=== PATIENT | female | born 1995 | race Caucasian/White ===

== ENCOUNTER 2017-04-06 16:48 | Emergency (ER) | payer OTHER ==
--- NOTE | 2017-04-06 19:43 | DIAGNOSTIC IMAGING REPORT ---
PROCEDURE: ABDOMEN/PELVIS WITH CONTRAST CLINICAL INDICATION: ABDOMINAL PAIN TECHNIQUE: 125 ml of Isovue 300 were injected intravenously and axial images were obtained of the abdomen and pelvis with sagittal and coronal reformations. COMPARISON: None. FINDINGS: ABDOMEN: Mild right hydronephrosis and a very slight relative delay of contrast excretion. Mild to moderate right hydroureter to the level of the distal ureter. A 4 mm calculus is present in the distal ureter between one and 2 cm above the ureterovesicular junction. A small amount of contrast is present in the urinary bladder and opacifying the left ureter nearly to the level of the ureterovesicular junction. The enhancement pattern throughout the right kidney is otherwise normal without evidence of pyelonephritis or suspicious mass. Clear lung bases. Normal sized heart. No hiatal hernia. The liver, gallbladder, adrenal glands, left kidney, pancreas and spleen are normal. The abdominal aorta is normal in its course and caliber. No atherosclerosis. There are no suspicious calcifications, retroperitoneal adenopathy or masses. The stomach, upper bowel loops, and mesentery are normal. Intact anterior abdominal wall. PELVIS: The appendix and pelvic small bowel loops are normal. Normal amount of stool in the colon and rectum. The uterus, ovaries, urinary bladder, and pelvic vessels are normal. No adenopathy or pelvic mass. Trace pelvic free fluid. Intact osseous structures. IMPRESSION: 1. 4 mm right distal ureteral calculus causing mild hydroureteronephrosis and slight delay of right renal function. 2. No evidence of pyelonephritis. 3. Discussed with Dr. [place] in the emergency room. All CT scans at this facility use dose modulation, iterative reconstruction, and/or weight-based dosing when appropriate to reduce radiation dose to as low as reasonably achievable.
--- NOTE | 2017-04-06 20:39 | ED NURSING NOTES ---
Clinical Report - Nurses [facility] [address] [place] [address] 04/06/2017 16:50 [id number] TRI[facility] Triage time 16:58. Acuity: LEVEL 3. Chief Complaint: RIGHT-SIDED FLANK PAIN. Alert. No acute distress. --17:13 Alisson Mcclelland R.N. 16:57 04/06/17. BP: 127/71. HR: 82. RR: 18. O2 saturation: 99% on room air. Temp: 97.3 F. Pain level now: 0/10. Additional comments: 05/17 . --17:13 Alisson Mcclelland R.N. Weight: 90.7 kg stated. Height/Length: 69 inches Per Patient. BMI: 29.5. --17:10 Alisson Mcclelland R.N. Medication/allergy information source: the patient. --17:13 Alisson Mcclelland R.N. History Arrived by private vehicle. Historian: patient and family. Accompanied by family. No primary care physician. This started today. She has had moderate, intermittent, dull right-sided flank pain with nausea. Last oral intake by patient was lunch. 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 (aleve and). PAST MEDICAL HX: Last normal menstrual period- March 22. SOCIAL HX: Never smoker. History of drug use: marijuana. Recently used drugs just prior to arrival. No alcohol use. FALL RISK ASSESSMENT: Fall risk assessment completed. No fall risk identified. NUTRITIONAL RISK ASSESSMENT: The nutritional risk assessment revealed no deficiencies. FUNCTIONAL ASSESSMENT: Functional assessment: no impairments noted. LEARNING NEEDS ASSESSMENT: The learning needs assessment revealed no barriers. SKIN INTEGRITY ASSESSMENT: Skin integrity risk assessment completed. No skin integrity risk identified. --17:13 Alisson Mcclelland R.N. PROBLEMS: MRSA Infection. Bronchitis. Pneumonia. --17:10 Alisson Mcclelland R.N. ADDITIONAL SURGERIES: no known surgeries. Interventions ID band on patient. To room. --17:13 Alisson Mcclelland R.N. PHYSICAL ASSESSMENT Ambulatory to room. Patient gowned. GENERAL / NEURO / PSYCH: Alert. Oriented X 4. Appears anxious. HEENT: Mucous membranes are pink. RESPIRATORY: Respirations not labored. GI / : Abdominal tenderness in the right lower quadrant and lower abdomen. SKIN: Skin is warm and dry. --17:13 Alisson Mcclelland R.N. NURSING PROGRESS NOTES Patient gowned. Head of bed elevated. Two patient identifiers checked. Call light placed in reach. Side rails up x 1. Bed placed in lowest position. Brakes of bed on. Patient ready for evaluation. --17:13 Alisson Mcclelland R.N. 18:31 04/06/2017 Site #1 started via IV in the right antecubital space with an 20g angiocath, with aseptic technique and good blood return; one attempt. Blood drawn: rainbow set. Labeled in the presence of the patient and sent to the lab. Saline lock flushed with saline. --18:31 Alisson Mcclelland R.N. 18:32 04/06/2017 Started bag #1 1000 mL IV Fluids IV NS (Saline); at 250 mL/hr over 4 hour(s) via site #1 via IV pump. Allergies verified and confirmed 5 rights. IV patency established. IV site checked: no pain, redness, or swelling. IV flushed thoroughly pre- and post-medication administration. --18:32 Alisson Mcclelland R.N. 19:31 04/06/2017 Toradol IVP 30 mg given over 1 minute(s) via site #1. Allergies verified and confirmed 5 rights. IV patency established. IV site checked: no pain, redness, or swelling. IV flushed thoroughly pre- and post-medication administration. IVP given by RN. --19:46 Alisson Mcclelland R.N. 19:33 04/06/2017 Started 2 gm of Rocephin (CefTRIAXone Sodium) IVPB in bag #1 50 mL; at 100 mL/hr via site #1 via IV pump. Allergies verified and confirmed 5 rights. IV patency established. IV site checked: no pain, redness, or swelling. IV flushed thoroughly pre- and post-medication administration. --19:48 Alisson Mcclelland R.N. 19:34 04/06/2017 Zofran (Ondansetron HCl) IVP 4 mg given over 1 minute(s) via site #1. Allergies verified and confirmed 5 rights. IV patency established. IV site checked: no pain, redness, or swelling. IV flushed thoroughly pre- and post-medication administration. IVP given by RN. --19:49 Alisson Mcclelland R.N. 19:40 04/06/17. BP: 128/77. HR: 85. RR: 20. O2 saturation: 97% on room air. Pain level now: 05/17. 18:19 04/06/17. BP: 122/88. HR: 78. RR: 20. O2 saturation: 99% on room air. --19:51 Alisson Mcclelland R.N. 21:01 04/06/2017 Site #1 removed. Bandaid applied. --21:11 Sheriff Fuller R.N. DISPOSITION / DISCHARGE No learning barriers present. Discharge instructions provided and reviewed with the patient. Reviewed medication(s) side effects, precautions, dosing and course information. Prescription(s) given to the patient. Patient verbalized understanding. Written instructions provided in Turkmen. The patient was discharged by the physician. She was discharged home and accompanied by parent. She left the Emergency Department ambulatory and via private vehicle. Parent driving. --21:11 Sheriff Fuller R.N. 21:10 04/06/17. BP: 124/64. HR: 73. RR: 14. O2 saturation: 99%. Temp: 98.5 F. --21:11 Sheriff Fuller R.N. Locked/Released at 04/06/2017 21:12 by Sheriff Fuller R.N.
--- NOTE | 2017-04-06 20:39 | ED CLINICAL REPORT ---
Clinical Report - Physicians/Mid Levels [facility] [address] [place] [address] 04/06/2017 16:50 [id number] Time Seen: 16:56 Apr 06 2017. Arrived- By private vehicle. Historian- patient. CPT: ER phys charges level 4 (#[id number]). HISTORY OF PRESENT ILLNESS Chief Complaint: FLANK PAIN. At its maximum, severity described as 8 / 10. When seen in the E.D., it was almost gone. Modifying factors- worsened by movement. Not relieved by anything. It is described as "pain" and well localized and it is described as located in the right lower quadrant. This started today. It was abrupt in onset and has been intermittent (3 episodes lasting 2 hours). The patient has had nausea and loss of appetite. No vomiting or diarrhea. No recent travel. Similar symptoms previously: None. Recent medical care: Not recently seen/assessed. REVIEW OF SYSTEMS No constipation, black stools, hematemesis, difficulty with urination or pain with urination. No urinary frequency, fever, sore throat, chest pain or difficulty breathing. No cough, joint pain, skin rash, chills or back pain. All systems otherwise negative, except as recorded above. PAST HISTORY No history of peptic ulcer. No history of gallstones or bowel obstruction. Has not had urinary calculi. Surgeries: No prior abdominal surgery. SOCIAL HISTORY History of drug use: marijuana. No alcohol use. ADDITIONAL NOTES The nursing notes have been reviewed. PHYSICAL EXAM Vital Signs: 04/06/2017 16:57 BP: 127/71. HR: 82. RR: 18. O2 saturation: 99%. Temp: 97.3 F. Pain level now: 0/10. Appearance: Alert. No acute distress. Eyes: Eyes normal inspection. ENT: Pharynx normal. Neck: Normal inspection. CVS: Normal heart rate and rhythm. Heart sounds normal. Pulses normal. Respiratory: No respiratory distress. Breath sounds normal. Chest nontender. Abdomen: Soft. Tenderness in the right lower quadrant. Bowel sounds normal. Back: Normal inspection. No CVA tenderness. Skin: Skin warm. Normal skin color. No rash. Extremities: Extremities exhibit normal ROM. No lower extremity edema. Neuro: Oriented X 3. No motor deficit. No sensory deficit. LABS, X-RAYS, AND EKG Abdominal CT: Normal aorta. Normal liver, spleen, pancreas, gallbladder and adrenals. A single urinary calculus is present in the right distal ureter (4 mm). There is moderate obstruction. Moderate hydronephrosis of the right kidney. Uterus normal. Adnexa normal. Bladder normal. Appendix normal. No free fluid. No diverticulitis. No pyelonephritis. Abdominal CT performed with IV contrast. The study was independently viewed by me, interpreted by the radiologist and discussed with the radiologist. Laboratory Tests: UA-Culture if indicated: (PADMINI: 04/06/2017 16:55) ( [facility] 04/06/2017 17:48) Final results Test Result Flag Units (Reference) URINE COLOR YELLOW URINE APPEARANCE CLEAR URINE GLUCOSE NEGATIVE (NEGATIVE) URINE BILIRUBIN NEGATIVE (NEGATIVE) URINE KETONE TRACE (NEGATIVE) URINE SPECIFIC GRAVITY 1.020 (1.010-1.030) URINE PH 6.5 (5.0-8.0) URINE PROTEIN 1+ (NEGATIVE) URINE UROBILINOGEN 0.2 EU/dL (0.2-1.0) URINE NITRITE NEGATIVE (NEGATIVE) URINE BLOOD 3+ (NEGATIVE) URINE LEUK ESTERASE POSITIVE (NEGATIVE) URINE RBC 10-25 rbc/hpf (0-1) URINE WBC 5-10 wbc/hpf (0-1) URINE EPITHELIAL CELLS 1-3 EPI/hpf (0-5) URINE BACTERIA MODERATE (2+ TO 3+) (NONE SEEN) URINE COMMENT CULTURE INDICATED URINE CULTURES ARE SET-UP BASED ON THE FOLLOWING CRITERIA:POSITIVE NITRITEPOSITIVE LEUKOCYTE ESTERASEGREATER THAN 10 WHITE BLOOD CELLSMODERATE (2+) OR GREATER BACTERIA Urine: (PADMINI: 04/06/2017 16:53) ( [facility] 04/06/2017 17:56) Final results Test Result Flag Units (Reference) URINE NEGATIVE CBC w Diff: (PADMINI: 04/06/2017 18:30) ( [facility] 04/06/2017 18:46) Final results Test Result Flag Units (Reference) WHITE BLOOD COUNT 13.3 H K/uL (4.5-11.5) RED BLOOD COUNT 4.65 M/uL (4.00-5.20) HEMOGLOBIN 13.0 gm/dL (12.0-16.0) HEMATOCRIT 39.2 % (36.0-46.0) MEAN CELL VOLUME 84 fL (80-100) MEAN CORPUSCULAR HGB 28 pg (26-34) MEAN CORPUSCULAR HGB CONC 33 g/dL (31-37) RED CELL DISTRIBUTION WIDTH 14.9 H % (11.6-14.8) PLATELET COUNT 267 K/uL (150-400) NEUTROPHIL % 82.0 H % (50-75) LYMPH % 12.5 L % (25-40) MONO % 4.7 % (3-14) EOSINOPHIL % 0.3 % (0-4) BASOPHIL % 0.5 % (0-2) CMP: (PADMINI: 04/06/2017 18:30) ( MsgRcvd 04/06/2017 19:02) Final results Test Result Flag Units (Reference) GLUCOSE 92 mg/dL (70-110) BUN 13 mg/dL (7-18) CREATININE 1.1 mg/dL (0.6-1.3) Estimated GFR >60 mL/min Estimated GFR- >60 mL/min Note: Persistent reduction over 3 months in eGFR<60 mL/min/1.73 m2 defines CKD. Patients with eGFR values>=60 mL/min/1.73 m2 may also have CKD if evidence ofpersistent proteinuria. Additional information may be foundat www.kidney.org. SODIUM 141 mmol/L (136-145) POTASSIUM 3.8 mmol/L (3.5-5.1) CHLORIDE 102 mmol/L (98-107) CARBON DIOXIDE 27 mmol/L (21-32) CALCIUM 9.0 mg/dL (8.5-10.1) TOTAL PROTEIN 8.9 H g/dL (6.4-8.2) ALBUMIN 4.8 g/dL (3.3-5.0) BILIRUBIN, TOTAL 0.6 mg/dL (0.0-1.0) ALKALINE PHOSPHATASE 49 U/L (46-116) AST (SGOT) 15 U/L (15-37) ALT (SGPT) 22 U/L (12-78) LIPASE 139 U/L (73-393) AMYLASE 35 U/L (25-115) . PROGRESS AND PROCEDURES Course of Care: patient has had 3 episodes today of severe right lower quadrant abdominal pain. This could be a stuttering appendix aren't ovarian cyst. Kidney stone is also possible as well as pyelonephritis. IV NS Rocephin 2g IV Toradol 30 mg IV Patient is stable. Symptoms better. Patient/family counseled. Disposition: Discharged. Condition: stable and improved. CLINICAL IMPRESSION Ureterolithiasis (single stone) in the right ureter with renal colic, hydronephrosis and urinary tract infection. No acute pyelonephritis. Acute urinary tract infection with cystitis. INSTRUCTIONS Do not work for two days until better. Drink plenty of fluids. No sexual contact until released. (Strain urine: Return stone to your Doctor.). Warnings: Further evaluation is necessary. GENERAL WARNINGS: Return or contact your physician immediately if your condition worsens or changes unexpectedly, if not improving as expected, or if other problems arise. Prescription Medications: Zofran (orally disintegrating tablets) 4 mg: take 1 orally every 4 hours as needed for nausea. Dispense ten (10). No refill. Macrobid 100 mg: Take 1 capsule orally every 12 hours for 7 days. No refills. Substitution is permissible. Oxycodone/APAP 5 mg/325 mg: take 1-2 tablets orally every 6 hours as needed for pain. Dispense fifteen (15). No refill. OTC Medications: Take ibuprofen (Advil, Nuprin, etc.) according to label instructions. Available over the counter. Follow-up: Return to the emergency department in two days if not better. Follow up with your doctor in one week. Call for an appointment. Understanding of the discharge instructions verbalized by patient. (Electronically signed by Ryder Tracy MD 04/07/2017 16:34)
--- NOTE | 2017-04-06 20:39 | ED ORDER SUMMARY ---
..... Patient: ALYCIA NICK OrderSheet [facility] VisitID: [id number] [address] [place], [place] [id number] 21y, F Registration Date/Time: 04/06/2017 ORDER SHEET Weight: 90.7 kg (stated) Allergies: GENERAL ORDERS: UA-Culture if indicated Urgent (17:15 04/06/2017 Terri MURRAY) (Ack 17:21 PWeiler ER Tech1) (17:24 PWeiler ER Tech1) Urine Urgent (17:49 04/06/2017 Terri MURRAY) (17:51 PWeiler ER Tech1) CT Abd/Pel w Cont (No) (N/A) Urgent (18:01 04/06/2017 Terri MURRAY) (Ack 18:06 PEEeitanya ER Tech1) (19:22 SRoberts R.N.) CBC w Diff Urgent (18:01 04/06/2017 Terri MURRAY) (Ack 18:06 PEEeiler ER Tech1) (18:31 SRoberts R.N.) CMP Urgent (18:01 04/06/2017 Terri MURRAY) (Ack 18:06 PEEeitanya ER Tech1) (18:31 SRoberts R.N.) Amylase Urgent (18:01 04/06/2017 Terri MURRAY) (Ack 18:06 PEEeitanya ER Tech1) (18:31 SRoberts R.N.) Lipase Urgent (18:01 04/06/2017 Terri MURRAY) (Ack 18:06 PEEeiler ER Tech1) (18:31 SRoberts R.N.) MEDICATION ORDERS: IV FLUIDS: IV NS : initial bolus none -, then 250 mL/hr for 4h (NOW); Routine (18:01 04/06/2017 Terri MURRAY) (18:32 SRoberts R.N.) Rocephin IV 2 gm/50mL (NOW) (19:30 04/06/2017 Terri MURRAY) (Ack 19:31 SRoberts R.N.) (19:48 SRoberts R.N.) Toradol IV 30 mg (NOW) (19:30 04/06/2017 Terri MURRAY) (Ack 19:31 Natanael R.NFan) (19:46 Natanael Madden.Elver) Zofran IV 4 mg (NOW) (19:48 04/06/2017 Natanael Winchester. verbal order read back to Terri MURRAY) (19:49 Natanael DavidsonNFan) ORDER SHEET NOTES: [Electronically signed by Sheriff Roberth Fuller (21:12 04/06/2017)] [Electronically signed by Ryder Tracy MD (16:34 04/07/2017)] [Electronically locked/signed by Sheriff Roberth Fuller (21:12 04/06/2017)]
--- NOTE | 2017-04-06 20:39 | ED ORDER SUMMARY ---
..... Patient: ALYCIA NICK OrderSheet [facility] VisitID: [id number] [address] [place], [place] [id number] 21y, F Registration Date/Time: 04/06/2017 ORDER SHEET Weight: 90.7 kg (stated) Allergies: GENERAL ORDERS: UA-Culture if indicated Urgent (17:15 04/06/2017 Terri MURRAY) (Ack 17:21 PWeiler ER Tech1) (17:24 PWeiler ER Tech1) Urine Urgent (17:49 04/06/2017 Terri MURRAY) (17:51 PWeiler ER Tech1) CT Abd/Pel w Cont (No) (N/A) Urgent (18:01 04/06/2017 Terri MURRAY) (Ack 18:06 PEEeitanya ER Tech1) (19:22 SRoberts R.N.) CBC w Diff Urgent (18:01 04/06/2017 Terri MURRAY) (Ack 18:06 PEEeiler ER Tech1) (18:31 SRoberts R.N.) CMP Urgent (18:01 04/06/2017 Terri MURRAY) (Ack 18:06 PEEeitanya ER Tech1) (18:31 SRoberts R.N.) Amylase Urgent (18:01 04/06/2017 Terri MURRAY) (Ack 18:06 PEEeitanya ER Tech1) (18:31 SRoberts R.N.) Lipase Urgent (18:01 04/06/2017 Terri MURRAY) (Ack 18:06 PEEeiler ER Tech1) (18:31 SRoberts R.N.) MEDICATION ORDERS: IV FLUIDS: IV NS : initial bolus none -, then 250 mL/hr for 4h (NOW); Routine (18:01 04/06/2017 Terri MURRAY) (18:32 SRoberts R.N.) Rocephin IV 2 gm/50mL (NOW) (19:30 04/06/2017 Terri MURRAY) (Ack 19:31 SRoberts R.N.) (19:48 SRoberts R.N.) Toradol IV 30 mg (NOW) (19:30 04/06/2017 Terri MURRAY) (Ack 19:31 Natanael R.NFan) (19:46 Natanael Madden.Elver) Zofran IV 4 mg (NOW) (19:48 04/06/2017 Natanael Winchester. verbal order read back to Terri MURRAY) (19:49 Natanael DavidsonNFan) ORDER SHEET NOTES: [Electronically signed by Sheriff Roberth Fuller (21:12 04/06/2017)] [Electronically signed by Ryder [place] MD (16:34 04/07/2017)] [Electronically locked/signed by Sheriff Roberth Fuller (21:12 04/06/2017)]
--- NOTE | 2017-04-06 20:39 | ED NURSING NOTES ---
Clinical Report - Nurses [facility] [address] [place] [address] 04/06/2017 16:50 [id number] TRI[facility] Triage time 16:58. Acuity: LEVEL 3. Chief Complaint: RIGHT-SIDED FLANK PAIN. Alert. No acute distress. --17:13 Alisson Mcclelland R.N. 16:57 04/06/17. BP: 127/71. HR: 82. RR: 18. O2 saturation: 99% on room air. Temp: 97.3 F. Pain level now: 0/10. Additional comments: 05/17 . --17:13 Alisson Mcclelland R.N. Weight: 90.7 kg stated. Height/Length: 69 inches Per Patient. BMI: 29.5. --17:10 Alisson Mcclelland R.N. Medication/allergy information source: the patient. --17:13 Alisson Mcclelland R.N. History Arrived by private vehicle. Historian: patient and family. Accompanied by family. No primary care physician. This started today. She has had moderate, intermittent, dull right-sided flank pain with nausea. Last oral intake by patient was lunch. 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 (aleve and). PAST MEDICAL HX: Last normal menstrual period- March 22. SOCIAL HX: Never smoker. History of drug use: marijuana. Recently used drugs just prior to arrival. No alcohol use. FALL RISK ASSESSMENT: Fall risk assessment completed. No fall risk identified. NUTRITIONAL RISK ASSESSMENT: The nutritional risk assessment revealed no deficiencies. FUNCTIONAL ASSESSMENT: Functional assessment: no impairments noted. LEARNING NEEDS ASSESSMENT: The learning needs assessment revealed no barriers. SKIN INTEGRITY ASSESSMENT: Skin integrity risk assessment completed. No skin integrity risk identified. --17:13 Alisson Mcclelland R.N. PROBLEMS: MRSA Infection. Bronchitis. Pneumonia. --17:10 Alisson Mcclelland R.N. ADDITIONAL SURGERIES: no known surgeries. Interventions ID band on patient. To room. --17:13 Alisson Mcclelland R.N. PHYSICAL ASSESSMENT Ambulatory to room. Patient gowned. GENERAL / NEURO / PSYCH: Alert. Oriented X 4. Appears anxious. HEENT: Mucous membranes are pink. RESPIRATORY: Respirations not labored. GI / : Abdominal tenderness in the right lower quadrant and lower abdomen. SKIN: Skin is warm and dry. --17:13 Alisson Mcclelland R.N. NURSING PROGRESS NOTES Patient gowned. Head of bed elevated. Two patient identifiers checked. Call light placed in reach. Side rails up x 1. Bed placed in lowest position. Brakes of bed on. Patient ready for evaluation. --17:13 Alisson Mcclelland R.N. 18:31 04/06/2017 Site #1 started via IV in the right antecubital space with an 20g angiocath, with aseptic technique and good blood return; one attempt. Blood drawn: rainbow set. Labeled in the presence of the patient and sent to the lab. Saline lock flushed with saline. --18:31 Alisson Mcclelland R.N. 18:32 04/06/2017 Started bag #1 1000 mL IV Fluids IV NS (Saline); at 250 mL/hr over 4 hour(s) via site #1 via IV pump. Allergies verified and confirmed 5 rights. IV patency established. IV site checked: no pain, redness, or swelling. IV flushed thoroughly pre- and post-medication administration. --18:32 Alisson Mcclelland R.N. 19:31 04/06/2017 Toradol IVP 30 mg given over 1 minute(s) via site #1. Allergies verified and confirmed 5 rights. IV patency established. IV site checked: no pain, redness, or swelling. IV flushed thoroughly pre- and post-medication administration. IVP given by RN. --19:46 Alisson Mcclelland R.N. 19:33 04/06/2017 Started 2 gm of Rocephin (CefTRIAXone Sodium) IVPB in bag #1 50 mL; at 100 mL/hr via site #1 via IV pump. Allergies verified and confirmed 5 rights. IV patency established. IV site checked: no pain, redness, or swelling. IV flushed thoroughly pre- and post-medication administration. --19:48 Alisson Mcclelland R.N. 19:34 04/06/2017 Zofran (Ondansetron HCl) IVP 4 mg given over 1 minute(s) via site #1. Allergies verified and confirmed 5 rights. IV patency established. IV site checked: no pain, redness, or swelling. IV flushed thoroughly pre- and post-medication administration. IVP given by RN. --19:49 Alisson Mcclelland R.N. 19:40 04/06/17. BP: 128/77. HR: 85. RR: 20. O2 saturation: 97% on room air. Pain level now: 05/17. 18:19 04/06/17. BP: 122/88. HR: 78. RR: 20. O2 saturation: 99% on room air. --19:51 Alisson Mcclelland R.N. 21:01 04/06/2017 Site #1 removed. Bandaid applied. --21:11 Sheriff Fuller R.N. DISPOSITION / DISCHARGE No learning barriers present. Discharge instructions provided and reviewed with the patient. Reviewed medication(s) side effects, precautions, dosing and course information. Prescription(s) given to the patient. Patient verbalized understanding. Written instructions provided in [place]. The patient was discharged by the physician. She was discharged home and accompanied by parent. She left the Emergency Department ambulatory and via private vehicle. Parent driving. --21:11 Sheriff Fuller R.N. 21:10 04/06/17. BP: 124/64. HR: 73. RR: 14. O2 saturation: 99%. Temp: 98.5 F. --21:11 Sheriff Fuller R.N. Locked/Released at 04/06/2017 21:12 by Sheriff Fuller R.N.
--- NOTE | 2017-04-07 16:35 | ED MAR SUMMARY ---
..... Medication Administration Record [facility] [address] [place] [address] Patient: ALYCIA NICK Visit ID: [id number] 21y, F Weight: 90.7 kg Height/Length: 69 in BMI: 29.5 ALLERGIES: Start 18:32 04/06/2017 Alisson Mcclelland R.N. Medication Administered: IV NS (SALINE), Dose: IV Fluids over 4 hour(s), Rate: 250 mL/hr, Dispensed: 1000 mL bag, Site: #1 right AC. Medication Ordered: IV NS : initial bolus none -, then 250 mL/hr for 4h (NOW); Routine. Given 19:31 04/06/2017 Alisson Mcclelland R.N. Medication Administered: TORADOL [IVP], Dose: 30 mg IVP over 1 minute(s), Site: #1 right AC. Medication Ordered: Toradol IV 30 mg (NOW). Start 19:33 04/06/2017 Alisson Mcclelland R.N. Medication Administered: ROCEPHIN [IVPB] (CEFTRIAXONE SODIUM), Dose: 2 gm IVPB, Rate: 100 mL/hr, Dispensed: 50 mL bag, Site: #1 right AC. Medication Ordered: Rocephin IV 2 gm/50mL (NOW). Given 19:34 04/06/2017 Alisson Mcclelland R.N. Medication Administered: ZOFRAN [IVP] (ONDANSETRON HCL), Dose: 4 mg IVP over 1 minute(s), Site: #1 right AC. Medication Ordered: Zofran IV 4 mg (NOW).
--- NOTE | 2017-04-07 16:35 | ED MAR SUMMARY ---
..... Medication Administration Record [facility] [address] [place] [address] Patient: ALYCIA NICK Visit ID: [id number] 21y, F Weight: 90.7 kg Height/Length: 69 in BMI: 29.5 ALLERGIES: Start 18:32 04/06/2017 Alisson Mcclelland R.N. Medication Administered: IV NS (SALINE), Dose: IV Fluids over 4 hour(s), Rate: 250 mL/hr, Dispensed: 1000 mL bag, Site: #1 right AC. Medication Ordered: IV NS : initial bolus none -, then 250 mL/hr for 4h (NOW); Routine. Given 19:31 04/06/2017 Alisson Mcclelland R.N. Medication Administered: TORADOL [IVP], Dose: 30 mg IVP over 1 minute(s), Site: #1 right AC. Medication Ordered: Toradol IV 30 mg (NOW). Start 19:33 04/06/2017 Alisson Mcclelland R.N. Medication Administered: ROCEPHIN [IVPB] (CEFTRIAXONE SODIUM), Dose: 2 gm IVPB, Rate: 100 mL/hr, Dispensed: 50 mL bag, Site: #1 right AC. Medication Ordered: Rocephin IV 2 gm/50mL (NOW). Given 19:34 04/06/2017 Alisson Mcclelland R.N. Medication Administered: ZOFRAN [IVP] (ONDANSETRON HCL), Dose: 4 mg IVP over 1 minute(s), Site: #1 right AC. Medication Ordered: Zofran IV 4 mg (NOW).
--- NOTE | 2017-04-07 16:35 | ED MED RECONCILIATION SUMMARY ---
Patient: ALYCIA NICK Medication Reconciliation Report Merged With [facility] VisitID: [id number] [place] [address] 21y, F Registration Date/Time: 04/06/2017 Weight: 90.7 kg Height/Length: 69 in. BMI: 29.5 ALLERGIES: The patient's Home Medications are listed below: Not obtained. The source(s) of the original Home Medication information: patient The following Medications were given to the patient in the Emergency Department: IV NS IV Fluids bolus 0, then 250 mL/hr, administered: 04/06/2017 6:32:00 PM Toradol [IVP] IVP 30 mg, administered: 04/06/2017 7:31:00 PM Rocephin [IVPB] IVPB bolus 0, then 2 gm 100 mL/hr, administered: 04/06/2017 7:33:00 PM Zofran [IVP] IVP 4 mg, administered: 04/06/2017 7:34:00 PM The following Medications were prescribed to the patient: Take ibuprofen (Advil, Nuprin, etc.) according to label instructions. Available over the counter. -- Ryder Tracy MD Zofran (orally disintegrating tablets) 4 mg: take 1 orally every 4 hours as needed for nausea. Dispense ten (10). No refill. -- Ryder Tracy MD Macrobid 100 mg: Take 1 capsule orally every 12 hours for 7 days. No refills. Substitution is permissible. -- Ryder Tracy MD Oxycodone/APAP 5 mg/325 mg: take 1-2 tablets orally every 6 hours as needed for pain. Dispense fifteen (15). No refill. -- Ryder Tracy MD
--- NOTE | 2017-04-07 16:35 | ED DISCHARGE INSTRUCTIONS ---
Patient: ALYICA NICK General Instructions [facility] VisitID: [id number] [place] [address] 21y, F Registration Date/Time: 04/06/2017 Ureterolithiasis (single stone) in the right ureter with renal colic, hydronephrosis and urinary tract infection. No acute pyelonephritis. Acute urinary tract infection with cystitis. INSTRUCTIONS Do not work for two days until better. Drink plenty of fluids. No sexual contact until released. (Strain urine: Return stone to your Doctor.). Warnings: Further evaluation is necessary. GENERAL WARNINGS: Return or contact your physician immediately if your condition worsens or changes unexpectedly, if not improving as expected, or if other problems arise. Prescription Medications: Zofran (orally disintegrating tablets) 4 mg: take 1 orally every 4 hours as needed for nausea. Dispense ten (10). No refill. Macrobid 100 mg: Take 1 capsule orally every 12 hours for 7 days. No refills. Substitution is permissible. Oxycodone/APAP 5 mg/325 mg: take 1-2 tablets orally every 6 hours as needed for pain. Dispense fifteen (15). No refill. OTC Medications: Take ibuprofen (Advil, Nuprin, etc.) according to label instructions. Available over the counter. Follow-up: Return to the emergency department in two days if not better. Follow up with your doctor in one week. Call for an appointment. Understanding of the discharge instructions verbalized by patient. ADDITIONAL INFORMATION Kidney Stone (W/ Colic) The sharp cramping pain and nausea/vomiting that you have is due to a small stone which has formed in the kidney and is now passing down a narrow tube (ureter) on its way to your bladder. Once it reaches your bladder, the pain will stop. The stone may pass in your urine stream in one piece. [The size may be 1/16" to 1/4" (1-6mm)]. Or, the stone may also break up into rosa fragments which you may not even notice. Once you have had a kidney stone, you are at risk for developing another one in the future. Home Care: Drink plenty of fluids (at least 8 to 10 glasses of water a day). Most stones will pass on their own, but may take from a few hours to a few days. Sometimes the stone is too large to pass by itself and special methods will have to be used to remove the stone. Each time you urinate, do so in a jar. Pour the urine from the jar through the strainer and into the toilet. Continue doing this until 24 hours after your pain stops. By then, if there was a kidney stone, it should pass from your bladder. Some stones dissolve into sand-like particles and pass right through the strainer. In that case, you wont ever see a stone. Save any stone that you find in the strainer and bring it to your doctor for analysis. It may be possible to prevent certain types of stones from forming. Therefore, it is important to know what kind of stone you have. Try to stay as active as possible since this will help the stone pass. Do not stay in bed unless your pain prevents you from getting up. You may notice a red, pink or brown color to your urine. This is normal while passing a kidney stone. Follow Up with your doctor or return to this facility if the pain lasts more than 48 hours. Get Prompt Medical Attention if any of the following occur: Pain that is not controlled by the medicine given Repeated vomiting or unable to keep down fluids Weakness, dizziness or fainting Fever of 100.4F (38C) or higher, or as directed by your healthcare provider Passage of solid red or brown urine (can't see through it) or urine with lots of blood clots Unable to pass urine for 8 hours and increasing bladder pressure Bladder Infection,Female (Adult) A bladder infection ("cystitis" or "UTI") usually causes a constant urge to urinate and a burning when passing urine. Urine may be cloudy, smelly or dark. There may be pain in the lower abdomen. A bladder infection occurs when bacteria from the vaginal area enter the bladder opening (urethra). This can occur from sexual intercourse, wearing tight clothing, dehydration and other factors. Home Care: Drink lots of fluids (at least 6-8 glasses a day, unless you must restrict fluids for other medical reasons). This will force the medicine into your urinary system and flush the bacteria out of your body. Avoid sexual intercourse until your symptoms are gone. Avoid caffeine, alcohol and spicy foods. These can irritate the bladder. A bladder infection is treated with antibiotics. You may also be given Pyridium (generic = phenazopyridine) to reduce the burning sensation. This medicine will cause your urine to become a bright orange color. The orange urine may stain clothing. You may wear a pad or panty-liner to protect clothing. Preventing Future Infections: Always wipe from front to back after a bowel movement. Keep the genital area clean and dry. Drink plenty of fluids each day to avoid dehydration. Both sexual partners should wash before intercourse. Urinate right after intercourse to flush out the bladder. Wear cotton underwear and cotton-lined panty hose; avoid tight-fitting pants. If you are on control pills and are having frequent bladder infections, discuss with your doctor. Follow Up: Return to this facility or see your doctor if ALL symptoms are not gone after three days of treatment. Get Prompt Medical Attention if any of the following occur: Fever of 100.4F (38C) or higher, or as directed by your healthcare provider No improvement by the third day of treatment Increasing back or abdominal pain Repeated vomiting; unable to keep medicine down Weakness, dizziness or fainting Vaginal discharge Pain, redness or swelling in the labia (outer vaginal area) Bladder Infection,Female (Adult) A bladder infection ("cystitis" or "UTI") usually causes a constant urge to urinate and a burning when passing urine. Urine may be cloudy, smelly or dark. There may be pain in the lower abdomen. A bladder infection occurs when bacteria from the vaginal area enter the bladder opening (urethra). This can occur from sexual intercourse, wearing tight clothing, dehydration and other factors. Home Care: Drink lots of fluids (at least 6-8 glasses a day, unless you must restrict fluids for other medical reasons). This will force the medicine into your urinary system and flush the bacteria out of your body. Avoid sexual intercourse until your symptoms are gone. Avoid caffeine, alcohol and spicy foods. These can irritate the bladder. A bladder infection is treated with antibiotics. You may also be given Pyridium (generic = phenazopyridine) to reduce the burning sensation. This medicine will cause your urine to become a bright orange color. The orange urine may stain clothing. You may wear a pad or panty-liner to protect clothing. Preventing Future Infections: Always wipe from front to back after a bowel movement. Keep the genital area clean and dry. Drink plenty of fluids each day to avoid dehydration. Both sexual partners should wash before intercourse. Urinate right after intercourse to flush out the bladder. Wear cotton underwear and cotton-lined panty hose; avoid tight-fitting pants. If you are on control pills and are having frequent bladder infections, discuss with your doctor. Follow Up: Return to this facility or see your doctor if ALL symptoms are not gone after three days of treatment. Get Prompt Medical Attention if any of the following occur: Fever of 100.4F (38C) or higher, or as directed by your healthcare provider No improvement by the third day of treatment Increasing back or abdominal pain Repeated vomiting; unable to keep medicine down Weakness, dizziness or fainting Vaginal discharge Pain, redness or swelling in the labia (outer vaginal area) Ondansetron Oral disintegrating tablet What is this medicine? ONDANSETRON (on DAKOTA se glenny) is used to treat nausea and vomiting caused by chemotherapy. It is also used to prevent or treat nausea and vomiting after surgery. How should I use this medicine? These tablets are made to dissolve in the mouth. Do not try to push the tablet through the foil backing. With dry hands, peel away the foil backing and gently remove the tablet. Place the tablet in the mouth and allow it to dissolve, then swallow. While you may take these tablets with water, it is not necessary to do so. Talk to your senior product integrity engineer regarding the use of this medicine in children. Special care may be needed. What side effects may I notice from receiving this medicine? Side effects that you should report to your doctor or health critical care nurse practitioner as soon as possible: allergic reactions like skin rash, itching or hives, swelling of the face, lips, or tongue breathing problems dizziness fast or irregular heartbeat feeling faint or lightheaded, falls fever and chills swelling of the hands and feet tightness in the chest Side effects that usually do not require medical attention (report to your doctor or health critical care nurse practitioner if they continue or are bothersome): constipation or diarrhea headache What may interact with this medicine? Do not take this medicine with any of the following medications: -apomorphine -cisapride -dofetilide -dronedarone -pimozide -thioridazine -ziprasidone This medicine may also interact with the following medications: -carbamazepine -phenytoin -rifampicin -tramadol -other medicines that prolong the QT interval (cause an abnormal heart rhythm) What if I miss a dose? If you miss a dose, take it as soon as you can. If it is almost time for your next dose, take only that dose. Do not take double or extra doses. Where should I keep my medicine? Keep out of the reach of children. Store between 2 and 30 degrees C (36 and 86 degrees F). Throw away any unused medicine after the expiration date. What should I tell my health care provider before I take this medicine? They need to know if you have any of these conditions: heart disease history of irregular heartbeat liver disease low levels of magnesium or potassium in the blood an unusual or allergic reaction to ondansetron, granisetron, other medicines, foods, dyes, or preservatives or trying to get breast-feeding What should I watch for while using this medicine? Check with your doctor or health critical care nurse practitioner as soon as you can if you have any sign of an allergic reaction. Oxycodone Hydrochloride, Acetaminophen Oral tablet What is this medicine? ACETAMINOPHEN; OXYCODONE (a set a MISHA nasir fen; ox i KOE done) is a pain reliever. It is used to treat mild to moderate pain. How should I use this medicine? Take this medicine by mouth with a full glass of water. Follow the directions on the prescription label. Take your medicine at regular intervals. Do not take your medicine more often than directed. Talk to your senior product integrity engineer regarding the use of this medicine in children. Special care may be needed. Patients over 65 years old may have a stronger reaction and need a smaller dose. What side effects may I notice from receiving this medicine? Side effects that you should report to your doctor or health critical care nurse practitioner as soon as possible: allergic reactions like skin rash, itching or hives, swelling of the face, lips, or tongue breathing difficulties, wheezing confusion light headedness or fainting spells severe stomach pain yellowing of the skin or the whites of the eyes Side effects that usually do not require medical attention (report to your doctor or health critical care nurse practitioner if they continue or are bothersome): dizziness drowsiness nausea vomiting What may interact with this medicine? alcohol antihistamines barbiturates like amobarbital, butalbital, butabarbital, methohexital, pentobarbital, phenobarbital, thiopental, and secobarbital benztropine drugs for bladder problems like solifenacin, trospium, oxybutynin, tolterodine, hyoscyamine, and methscopolamine drugs for breathing problems like ipratropium and tiotropium drugs for certain stomach or intestine problems like propantheline, homatropine methylbromide, glycopyrrolate, atropine, belladonna, and dicyclomine general anesthetics like etomidate, ketamine, nitrous oxide, propofol, desflurane, enflurane, halothane, isoflurane, and sevoflurane medicines for depression, anxiety, or psychotic disturbances medicines for sleep muscle relaxants naltrexone narcotic medicines (opiates) for pain phenothiazines like perphenazine, thioridazine, chlorpromazine, mesoridazine, fluphenazine, prochlorperazine, promazine, and trifluoperazine scopolamine tramadol trihexyphenidyl What if I miss a dose? If you miss a dose, take it as soon as you can. If it is almost time for your next dose, take only that dose. Do not take double or extra doses. Where should I keep my medicine? Keep out of the reach of children. This medicine can be abused. Keep your medicine in a safe place to protect it from theft. Do not share this medicine with anyone. Selling or giving away this medicine is dangerous and against the law. Store at room temperature between 20 and 25 degrees C (68 and 77 degrees F). Keep container tightly closed. Protect from light. This medicine may cause accidental overdose and if it is taken by other adults, children, or pets. Flush any unused medicine down the toilet to reduce the chance of harm. Do not use the medicine after the expiration date. What should I tell my health care provider before I take this medicine? They need to know if you have any of these conditions: brain tumor Crohn's disease, inflammatory bowel disease, or ulcerative colitis drink more than 3 alcohol containing drinks per day drug abuse or addiction head injury heart or circulation problems kidney disease or problems going to the bathroom liver disease lung disease, asthma, or breathing problems an unusual or allergic reaction to acetaminophen, oxycodone, other opioid analgesics, other medicines, foods, dyes, or preservatives or trying to get breast-feeding What should I watch for while using this medicine? Tell your doctor or health critical care nurse practitioner if your pain does not go away, if it gets worse, or if you have new or a different type of pain. You may develop tolerance to the medicine. Tolerance means that you will need a higher dose of the medication for pain relief. Tolerance is normal and is expected if you take this medicine for a long time. Do not suddenly stop taking your medicine because you may develop a severe reaction. Your body becomes used to the medicine. This does NOT mean you are addicted. Addiction is a behavior related to getting and using a drug for a non-medical reason. If you have pain, you have a medical reason to take pain medicine. Your doctor will tell you how much medicine to take. If your doctor wants you to stop the medicine, the dose will be slowly lowered over time to avoid any side effects. You may get drowsy or dizzy. Do not drive, use machinery, or do anything that needs mental alertness until you know how this medicine affects you. Do not stand or sit up quickly, especially if you are an older patient. This reduces the risk of dizzy or fainting spells. Alcohol may interfere with the effect of this medicine. Avoid alcoholic drinks. There are different types of narcotic medicines (opiates) for pain. If you take more than one type at the same time, you may have more side effects. Give your health care provider a list of all medicines you use. Your doctor will tell you how much medicine to take. Do not take more medicine than directed. Call emergency for help if you have problems breathing. The medicine will cause constipation. Try to have a bowel movement at least every 2 to 3 days. If you do not have a bowel movement for 3 days, call your doctor or health critical care nurse practitioner. Do not take Tylenol (acetaminophen) or medicines that have acetaminophen with this medicine. Too much acetaminophen can be very dangerous. Many nonprescription medicines contain acetaminophen. Always read the labels carefully to avoid taking more acetaminophen. You have been given the following additional information: Kidney Stone W/ Colic Bladder Infection, Female (Adult) Bladder Infection, Female (Adult) Ondansetron Oral disintegrating tablet Oxycodone Hydrochloride, Acetaminophen Oral tablet Do not work for two days until better. (Electronically signed by Ryder Tracy MD 04/07/2017 16:34)
--- NOTE | 2017-04-07 16:35 | ED MED RECONCILIATION SUMMARY ---
Patient: ALYCIA NICK Medication Reconciliation Report [facility] VisitID: [id number] [place] [address] 21y, F Registration Date/Time: 04/06/2017 Weight: 90.7 kg Height/Length: 69 in. BMI: 29.5 ALLERGIES: The patient's Home Medications are listed below: Not obtained. The source(s) of the original Home Medication information: patient The following Medications were given to the patient in the Emergency Department: IV NS IV Fluids bolus 0, then 250 mL/hr, administered: 04/06/2017 6:32:00 PM Toradol [IVP] IVP 30 mg, administered: 04/06/2017 7:31:00 PM Rocephin [IVPB] IVPB bolus 0, then 2 gm 100 mL/hr, administered: 04/06/2017 7:33:00 PM Zofran [IVP] IVP 4 mg, administered: 04/06/2017 7:34:00 PM The following Medications were prescribed to the patient: Take ibuprofen (Advil, Nuprin, etc.) according to label instructions. Available over the counter. -- Ryder Tracy MD Zofran (orally disintegrating tablets) 4 mg: take 1 orally every 4 hours as needed for nausea. Dispense ten (10). No refill. -- Ryder Tracy MD Macrobid 100 mg: Take 1 capsule orally every 12 hours for 7 days. No refills. Substitution is permissible. -- Ryder Tracy MD Oxycodone/APAP 5 mg/325 mg: take 1-2 tablets orally every 6 hours as needed for pain. Dispense fifteen (15). No refill. -- Ryder Tracy MD
== END 2017-04-06 20:55 | disposition home or self-care (01) ==
LOC: ED SRH 16:48
DX: N13.2 Hydronephrosis with renal and ureteral calculous obstruction (principal); N23 Unspecified renal colic; N30.90 Cystitis, unspecified without hematuria; F12.10 Cannabis abuse, uncomplicated
CPT/HCPCS: 90004; 90025; 90100; 90148; 90469; 92235; 92530; 93070; 95059